=== PATIENT | male | born 1975 | race Caucasian/White ===

== ENCOUNTER 2017-05-24 10:49 | Inpatient (IN) | payer BC, OTHER ==
[~2017-05-24] VITALS: Ht 180.3 cm; Wt 65.0 kg
[~2017-05-24 10:49] MED LIST: CIPR-255 PO; CLOB-65 EXT; RANI150T3 PO
[2017-05-24 11:35] LABS: BASO % 0.8 %; BASO ABS # 0.06 K/uL (0-0.2); COMPLETE YES; EOS % 3.4 %; IG% 0.1 %; LYMPH % 32.2 %; LYMPH ABS # 2.36 K/uL (1.2-3.4); MEAN CELL VOLUME 91.3 fL (80-100); MEAN CORPUSCULAR HEMOGLOBIN 32.3 pg (25-34); MEAN CORPUSCULAR HGB CONC 35.4 g/dl (32-36); MEAN PLATELET VOLUME 9.3 fL (7.4-10.4); MONO % 6.4 %; NEUT % 57.1 %; PLATELET COUNT 206 K/uL (130-400); RED BLOOD COUNT 5.04 M/uL (4.7-6.1); WHITE BLOOD COUNT 7.33 K/uL (4.8-10.8)
[2017-05-24 11:53] LABS: ALT/SGPT 22 U/L (12-78); BLOOD UREA NITROGEN 10 mg/dl (7-18); BUN/CREATININE RATIO 9.1 (10-20); CARBON DIOXIDE 29 mmol/L (21-32); CHLORIDE 105 mmol/L (98-107); GLUCOSE 140 mg/dl (70-99); POTASSIUM 3.6 mmol/L (3.5-5.1); SODIUM 139 mmol/L (136-145)
--- NOTE | 2017-05-24 11:54 | DIAGNOSTIC IMAGING REPORT ---
THORACIC SPINE 3 VIEWS HISTORY: Pt c/o Rt sided back pain COMPARISON: None. FINDINGS: There is no fracture. No subluxation. Disc spaces are preserved. Paraspinal soft tissues are unremarkable. Right-sided pneumothorax with a maximal pleural gap of 3.2 cm. IMPRESSION: No fracture or subluxation within the thoracic spine. Right-sided pneumothorax. This is better appreciated on the same day chest/rib series. Electronically signed by: Pramod Holder M.D. 05/24/2017 11:53 AM Dictated Date/Time: 05/24/2017 11:51 AM
[2017-05-24 11:58] LABS: ALKALINE PHOSPHATASE 74 U/L (45-117); AST/SGOT 17 U/L (15-37)
--- NOTE | 2017-05-24 11:59 | DIAGNOSTIC IMAGING REPORT ---
R RIBS UNILATERAL WITH PA CHEST CLINICAL HISTORY: Pt c/o RT sided back pain COMPARISON STUDY: None. FINDINGS: There is a moderate to large right-sided pneumothorax with a maximal pleural gap of 5 cm. No midline shift. The heart is normal in size. The lungs are clear. No pleural effusions. No rib fractures. IMPRESSION: 1. Moderate to large right pneumothorax. 2. No rib fractures. 3. These findings were discussed with Dr. Bashir at 11:55 AM on 05/24/2017. Electronically signed by: Pramod Holder M.D. 05/24/2017 11:58 AM Dictated Date/Time: 05/24/2017 11:52 AM
[2017-05-24] MEDS ORDERED: SODIUM CHLORIDE 0.9% 1000ML 1,000 ML IV STA (12:03)
[2017-05-24] MEDS ORDERED: PROPOFOL IV EMULSION 10 MG/ML 20 ML VIAL IV STA (12:03)
[2017-05-24] MEDS ORDERED: KETAMINE HCL INJ 50 MG/ML 10 ML VIAL IV STA (12:03)
[2017-05-24] MEDS ORDERED: ONDANSETRON INJ 2 MG/ML 2 ML VIAL IV STA (12:03)
[2017-05-24] MEDS ORDERED: XYLOCAINE 1%/SOD BICARB 20 ML VIAL INFIL STA (12:11)
--- NOTE | 2017-05-24 12:18 | EMERGENCY ROOM VISIT NOTE ---
History Report prepared by Vee: Deb Chaves Under the Supervision of: Dr. Pantera Bashir M.D. 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 The patient had just finished brushing his teeth and stood up when his pain started. He had a sudden onset of severe right-sided back pain radiating down into his right ribs. Standing up straight and breathing exacerbate his pain. He rates his current pain as a 7/10 in severity. The patient denies chest pain and left- sided rib or back pain. He broke out into a cold sweat on his way to the ED. 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 A total of 10 systems reviewed and were otherwise negative. Past Medical & Surgical Medical Problems: (1) Gastritis Family History No pertinent history stated. Social History Smoking Status: Current Every Day Smoker Alcohol Use: none Drug Use: none Marital Status: single Occupation Status: employed Current/Historical Medications Scheduled PRN Ranitidine Hcl (Zantac), 150 MG PO DAILY PRN for GI Upset Allergies Coded Allergies: No Known Allergies (Unverified , 05/24/17) Physical Exam Vital Signs Date Time Temp Pulse Resp B/P (MAP) Pulse Ox O2 Delivery O2 Flow Rate FiO2 05/24/17 13:16 75 05/24/17 12:55 73 16 106/72 99 Nasal Cannula 2.0 05/24/17 12:35 36.7 72 18 124/73 99 Nasal Cannula 2.0 05/24/17 12:35 86 12 111/58 99 Nasal Cannula 2.0 05/24/17 12:34 73 16 103/68 100 Nasal Cannula 2.0 05/24/17 12:30 69 18 115/74 96 Room Air 05/24/17 12:26 36.7 16 103/68 99 Room Air 05/24/17 11:45 69 17 94/58 99 Room Air 05/24/17 11:23 Room Air 05/24/17 11:22 Room Air 05/24/17 11:17 Room Air 05/24/17 11:11 70 05/24/17 10:55 82 16 99/66 94 Physical Exam GENERAL: Patient is a healthy-appearing well-nourished 41 year old male. HEAD: Normocephalic atraumatic EYES: Ocular movements intact pupils equal and react to light OROPHARYNX mucous membranes are moist no exudates present no erythema or edema present NECK: Supple no nuchal rigidity CHEST: Good equal expansion LUNGS: Clear and equal to auscultation CARDIAC: Normal S1 and S2 ABDOMEN: Soft nontender no guarding BACK: No CVA tenderness EXTREMITIES: No pain upon palpation normal muscle strength in all groups no clubbing cyanosis or edema NEURO: Patient is following commands and answering questions appropriately. Alert and oriented x3 Cranial Nerves 2-12 grossly intact Medical Decision & Procedures ER Provider Diagnostic Interpretation: Radiology results as stated below per my review and radiologist interpretation: THORACIC SPINE 3 VIEWS HISTORY: Pt c/o Rt sided back pain COMPARISON: None. FINDINGS: There is no fracture. No subluxation. Disc spaces are preserved. Paraspinal soft tissues are unremarkable. Right-sided pneumothorax with a maximal pleural gap of 3.2 cm. IMPRESSION: No fracture or subluxation within the thoracic spine. Right-sided pneumothorax. This is better appreciated on the same day chest/rib series. Electronically signed by: Pramod Holder M.D. 05/24/2017 11:53 AM Dictated Date/Time: 05/24/2017 11:51 AM R RIBS UNILATERAL WITH PA CHEST CLINICAL HISTORY: Pt c/o RT sided back pain COMPARISON STUDY: None. FINDINGS: There is a moderate to large right-sided pneumothorax with a maximal pleural gap of 5 cm. No midline shift. The heart is normal in size. The lungs are clear. No pleural effusions. No rib fractures. IMPRESSION: 1. Moderate to large right pneumothorax. 2. No rib fractures. 3. These findings were discussed with Dr. Bashir at 11:55 AM on 05/24/2017. Electronically signed by: Pramod Holder M.D. 05/24/2017 11:58 AM Dictated Date/Time: 05/24/2017 11:52 AM CHEST ONE VIEW PORTABLE CLINICAL HISTORY: chest tube PNEUMOTHORAX COMPARISON STUDY: 05/24/2017 FINDINGS: There is an enlarging right-sided pneumothorax with a pleural separation of 67 mm. The left lung is clear. There are no pleural effusions. The reported right-sided chest tube appears extrathoracic.[ IMPRESSION: 1. The reported right-sided chest tube, appears extrathoracic 2. Enlarging large right-sided pneumothorax the pleural separation of 67 mm. Electronically signed by: Costa Krishnan M.D. 05/24/2017 1:09 PM Dictated Date/Time: 05/24/2017 1:07 PM Laboratory Results 05/24/17 11:20 Red Blood Count 5.04, Mean Corpuscular Volume 91.3, Mean Corpuscular Hemoglobin 32.3, Mean Corpuscular Hemoglobin Concent 35.4, Mean Platelet Volume 9.3, Neutrophils (%) (Auto) 57.1, Lymphocytes (%) (Auto) 32.2, Monocytes (%) (Auto) 6.4, Eosinophils (%) (Auto) 3.4, Basophils (%) (Auto) 0.8, Neutrophils # (Auto) 4.18, Lymphocytes # (Auto) 2.36, Monocytes # (Auto) 0.47, Eosinophils # (Auto) 0.25, Basophils # (Auto) 0.06 05/24/17 11:20 Test 05/24/17 11:20 White Blood Count 7.33 K/uL (4.8-10.8) Red Blood Count 5.04 M/uL (4.7-6.1) Hemoglobin 16.3 g/dL (14.0-18.0) Hematocrit 46.0 % (42-52) Mean Corpuscular Volume 91.3 fL (80-100) Mean Corpuscular Hemoglobin 32.3 pg (25-34) Mean Corpuscular Hemoglobin Concent 35.4 g/dl (32-36) Platelet Count 206 K/uL (130-400) Mean Platelet Volume 9.3 fL (7.4-10.4) Neutrophils (%) (Auto) 57.1 % Lymphocytes (%) (Auto) 32.2 % Monocytes (%) (Auto) 6.4 % Eosinophils (%) (Auto) 3.4 % Basophils (%) (Auto) 0.8 % Neutrophils # (Auto) 4.18 K/uL (1.4-6.5) Lymphocytes # (Auto) 2.36 K/uL (1.2-3.4) Monocytes # (Auto) 0.47 K/uL (0.11-0.59) Eosinophils # (Auto) 0.25 K/uL (0-0.5) Basophils # (Auto) 0.06 K/uL (0-0.2) RDW Standard Deviation 43.8 fL (36.4-46.3) RDW Coefficient of Variation 13.3 % (11.5-14.5) Immature Granulocyte % (Auto) 0.1 % Immature Granulocyte # (Auto) 0.01 K/uL (0.00-0.02) Anion Gap 5.0 mmol/L (3-11) Est Creatinine Clear Calc Drug Dose 78.4 ml/min Estimated GFR () 97.5 Estimated GFR (Non- 84.1 BUN/Creatinine Ratio 9.1 (10-20) Calcium Level 9.0 mg/dl (8.5-10.1) Total Bilirubin 0.6 mg/dl (0.2-1) Direct Bilirubin 0.2 mg/dl (0-0.2) Aspartate Amino Transf (AST/SGOT) 17 U/L (15-37) Alanine Aminotransferase (ALT/SGPT) 22 U/L (12-78) Alkaline Phosphatase 74 U/L (45-117) Total Creatine Kinase 68 U/L (39-308) Creatine Kinase MB < 0.5 ng/ml (0.5-3.6) Creatine Kinase MB Ratio (0-3.0) Troponin I < 0.015 ng/ml (0-0.045) Total Protein 8.0 gm/dl (6.4-8.2) Albumin 4.4 gm/dl (3.4-5.0) Lipase 121 U/L (73-393) Labs reviewed by ED physician. Medications Administered Medications (Trade) Dose Ordered Sig/Bert Route Start Time Stop Time Status Last Admin Dose Admin Sodium Chloride 1,000 ml @ 999 mls/hr Q1H1M STAT IV 05/24/17 12:03 05/24/17 13:03 DC 05/24/17 13:03 999 MLS/HR Ondansetron HCl (Zofran Inj) 4 mg NOW STAT IV 05/24/17 12:03 05/24/17 12:04 DC 05/24/17 13:03 4 MG Fentanyl Citrate (Fentanyl Inj) 100 mcg NOW STAT IV 05/24/17 12:24 05/24/17 12:25 DC 05/24/17 13:04 50 MCG Fentanyl Citrate (Fentanyl Inj) 100 mcg NOW ONCE IV 05/24/17 13:30 05/24/17 13:33 DC 05/24/17 13:41 100 MCG Procedure Tube Thoracostomy Indication: Pneumothorax Written consent was obtained after the risks and benefits were explained, including but not limited to cardiac/liver/lung injury, bleeding, scarring, infection, pain, and bone/joint/nerve damage. At this time, the risks of the procedure are less than the risks of NOT performing the procedure. A time out was taken and the correct patient and site identified. The patient was prepped and draped in the standard surgical fashion. 1% lidocaine without epinephrine was infused over the right fifth intercostal space into the subcutaneous tissue. A 3 cm incision was made transversely in the mid axillary line over the fifth intercostal rib. Blunt dissection was done with a Nora clamp to the area of the intercostal muscles; 1% lidocaine again was used for anesthesia in intercostal muscle and subpleural space. Blunt dissection was then done with the Nora clamps into the pleural cavity over the rib. Air was noted upon entering the pleural cavity. The pleural cavity was digitally inspected to confirm that the pleural cavity had been entered. A Cook catheter was inserted in the superior/posterior portion of the pleural space. Tape was used to secure the thoracostomy tube. An occlusive dressing was then placed and the thoracostomy tube was hooked to the Pleur-evac suction. The patient tolerated the procedure well without complications. A postoperative x-ray was then performed. ECG Indication: back/shoulder pain Rate (beats per minute): 78 Rhythm: normal sinus Findings: no acute ischemic change, no ectopy ED Course 1101: Past medical records reviewed. The patient was evaluated in room C10. A complete history and physical examination was performed. 1203: Zofran 4 mg IV, NSS 1000 ml @ 999 mls/hr IV, Propofol IV, Ketamine HCl 1211: Lidocaine HCl 1214: The patient was moved to room A1. I updated the patient on his results and obtained consent for the procedure. 1224: Fentanyl Citrate 100 mcg IV 1230: Sedation was started at this time. Please see Dr. Varun Valente's procedural sedation note for further details. 1236: I finished placing the chest tube at this time. X-ray was notified to come for a post-procedural x-ray. 1251: I discussed the patient's case with Dr. Torre of general surgery. He wants the patient to be transferred to a trauma center. 1256: I spoke with Smooth Woodard PA-C with thoracic surgery. We discussed the patient's results and treatment plan. Smooth Woodard and Dr. Keenan of thoracic surgery will come to the ED to evaluate the patient for further management. 1259: I reassessed the patient at this time. He is resting comfortably. I discussed the results and treatment plan with the patient. I answered all pertaining questions that he had. He expressed understanding and verbalized agreement. Medical Decision Differential diagnosis: Etiologies such as musculoskeletal, disc herniation, fracture, aortic disease, metastatic disease, cord compression, discitis, infection, renal colic, gastrointestinal, acute exacerbation of chronic back pain, sciatica, cauda equina, as well as others were entertained. This is a 41-year-old male who presents emergency department complaining of right-sided chest pain. The patient's x-rays are concerning for pneumothorax. I discussed placing a chest tube with the patient who signed the consent. Sedation was performed by Dr. Valente. Chest tube was placed however there was no reinflation of the lung on x-ray. At this point I did discuss the case with the thoracic surgeon on-call who agreed to admit the patient. Medication Reconcilliation Current Medication List: was personally reviewed by me Blood Pressure Screening Patient's blood pressure: Normal blood pressure Consults Time Called: 1249 Consulting Physician: Dr. Torre Returned Call: 1251 I discussed the patient's case with Dr. Torre of general surgery. He wants the patient to be transferred to a trauma center. Additional Consults: Time Called: 1254 Consulted Physician: Smooth Woodard PA-C Returned Call: [phone] Additional Comments: I spoke with Smooth Woodard PA-C with thoracic surgery. We discussed the patient' s results and treatment plan. Smooth Woodard and Dr. Keenan of thoracic surgery will come to the ED to evaluate the patient for further management. Impression Primary Impression: Spontaneous pneumothorax Scribe Attestation The scribe's documentation has been prepared under my direction and personally reviewed by me in its entirety. I confirm that the note above accurately reflects all work, treatment, procedures, and medical decision making performed by me. Departure Information Dispostion Being Evaluated By Surgeon Referrals No Doctor, Assigned (PCP) Patient Instructions My [facility]
[2017-05-24] MEDS ORDERED: FENTANYL CITRATE INJ 50 MCG/1 ML 2 ML VIAL IV STA (12:24)
[2017-05-24 12:26] VITALS: BP 103/68; TEMP 36.7; O2SAT 99
[2017-05-24] MEDS ORDERED: FENTANYL CITRATE INJ 50 MCG/1 ML 2 ML VIAL ONE (12:26)
[2017-05-24 12:35] VITALS: BP 124/73; PULSE 72; TEMP 36.7; O2SAT 99
--- NOTE | 2017-05-24 13:10 | DIAGNOSTIC IMAGING REPORT ---
CHEST ONE VIEW PORTABLE CLINICAL HISTORY: chest tube PNEUMOTHORAX COMPARISON STUDY: 05/24/2017 FINDINGS: There is an enlarging right-sided pneumothorax with a pleural separation of 67 mm. The left lung is clear. There are no pleural effusions. The reported right-sided chest tube appears extrathoracic.[ IMPRESSION: 1. The reported right-sided chest tube, appears extrathoracic 2. Enlarging large right-sided pneumothorax the pleural separation of 67 mm. Electronically signed by: Costa Krishnan M.D. 05/24/2017 1:09 PM Dictated Date/Time: 05/24/2017 1:07 PM
[2017-05-24] MEDS ORDERED: FENTANYL CITRATE INJ 50 MCG/1 ML 2 ML VIAL IV ONE (13:30)
[2017-05-24] MEDS ORDERED: ONDANSETRON INJ 2 MG/ML 2 ML VIAL IV PRN (13:45)
[2017-05-24] MEDS ORDERED: RANITIDINE HCL 150 MG TAB PO PRN (13:45)
--- NOTE | 2017-05-24 13:49 | DIAGNOSTIC IMAGING REPORT ---
SINGLE VIEW CHEST CLINICAL HISTORY: Chest tube placement. FINDINGS: An AP, portable, upright chest radiograph is compared to study performed earlier the same day 05/24/2017. The examination is degraded by portable technique and patient rotation. A right apical chest tube has been placed. There is a trace residual right apical pneumothorax with less than 1 cm of apical pleural separation The cardiomediastinal silhouette is unremarkable. No airspace consolidation or large pleural effusion is seen. No left-sided pneumothorax is identified. The bony thorax is grossly intact. IMPRESSION: 1. A right-sided chest tube has been placed. There is only trace residual right apical pneumothorax. 2. The lungs are otherwise clear. Electronically signed by: Speedy Oliveros M.D. 05/24/2017 1:48 PM Dictated Date/Time: 05/24/2017 1:46 PM
[2017-05-24] MEDS ORDERED: KETOROLAC TROMETHAMINE 15 MG/ML VIAL IV ONE (14:00)
[2017-05-24] MEDS: MoRPHine SULFATE 4 MG/ML 1 ML CARP\\VIAL IV PRN (14:03)
[2017-05-24] MEDS: OXYCODONE HCL IR 5 MG TAB (IMMEDIATE RELEASE) PO PRN ×2 (14:04→19:54)
--- NOTE | 2017-05-24 14:29 | DIAGNOSTIC IMAGING REPORT ---
CT SCAN OF THE CHEST WITHOUT IV CONTRAST CLINICAL HISTORY: Pneumothorax. COMPARISON STUDY: Chest radiograph dated 05/24/2017. TECHNIQUE: CT scan of the thorax was performed from the thoracic inlet to the upper abdomen. Images are reviewed in the axial, sagittal, and coronal planes. IV contrast was not administered for this examination as per the referring clinician. A dose lowering technique was utilized adhering to the principles of ALARA. CT DOSE: 232.64 mGy.cm FINDINGS: Thyroid: Imaged portions of the thyroid gland are normal in size and attenuation. Thoracic aorta: The thoracic aorta is normal in caliber and demonstrates standard 3-vessel arch anatomy. Heart: The heart is normal in size and without pericardial effusion. The pulmonary trunk is normal in caliber. Lungs and pleural spaces: A right-sided chest tube is in place. This enters between the right anterolateral fourth and fifth ribs and terminates at the right apex. There is trace residual right pneumothorax. The trachea and central airways are clear. There is biapical scarring. Mild emphysematous change is noted. Atelectasis is seen at the right lung base. No airspace consolidation is seen typical for pneumonia. Trace right pleural effusion is noted. A 4 mm left lower lobe pulmonary nodule is seen on image #[id number]. Mediastinum: There is no mediastinal lymphadenopathy. Gin: Not well assessed without IV contrast. Axillae: There is no axillary lymphadenopathy. Upper abdomen: Partially visualized upper abdominal viscera is within normal limits. Skeletal structures: No lytic or blastic bony lesions are seen. IMPRESSION: 1. A right apical chest tube has been placed. There is a trace residual right-sided pneumothorax. 2. Atelectasis and trace pleural effusion is seen at the right lung base. 3. Minimal emphysematous change is observed. 4. There is an indeterminant 4 mm pulmonary nodule the left lung base. This can be followed if clinically warranted. See below. Please refer to below summary of Fleischner criteria recommendations for follow-up of incidental CT nodules (Leslie Montalvo, Guidelines for management of small pulmonary nodules detected on CT scans: A statement from the Fleischner Society, Radiology 237: [phone].) SOLID NODULES Solitary nodule size: <6 mm * low risk patients: no follow-up needed * high risk patients: optional CT at 12 months Solitary nodule size: 6-8 mm * low risk patients: follow-up at 6-12 months, then consider further follow-up at 18-24 months * high risk patients: initial follow-up CT at 6-12 months and then at 18-24 months if no change Solitary nodule size: >8 mm * either low or high risk patients - consider follow-up CT at 3 months, and/or CT-PET, and/or biopsy Multiple nodules size: <6 mm * low risk patients: no routine follow-up * high risk patients: optional CT at 12 months Multiple nodules size: 6-8 mm * low risk patients: follow-up at 3-6 months, then consider further follow-up at 18-24 months * high risk patients: follow-up at 3-6 months, then at 18-24 months if no change Multiple nodules size: >8 mm * low risk patients: follow-up at 3-6 months, then consider further follow-up at 18-24 months * high risk patients: follow-up at 3-6 months, then at 18-24 months if no change Note: newly detected indeterminate nodule in persons 35 years of age or older. * low risk patients: minimal or absent history of smoking and/or other known risk factors * high risk patients: history of smoking or of other known risk factors (e.g. first degree relative with lung cancer, or exposure to asbestos, radon, uranium) * if a nodule up to 8 mm is partly solid or is ground glass further follow-up is required after 24 months to exclude possible slow growing adenocarcinoma (DEISY) SUBSOLID NODULES Solitary pure ground-glass nodule * nodule size <6 mm - no CT follow-up required * nodule size >=6 mm - follow-up CT at 6-12 months, then every 2 years until 5 years Solitary part-solid nodule * nodule size <6 mm - no CT follow-up required * nodule size >=6 mm - follow-up CT at 3-6 months. If unchanged, and solid component remains <6 mm, then annual follow-up for 5 years Multiple subsolid nodules * nodule size <6 mm - follow-up CT at 3-6 months, consider further follow-up at 2 and 4 years if stable * nodule size >=6 mm - follow-up CT at 3-6 months, subsequent management based on the most suspicious nodule(s) Electronically signed by: Speedy Oliveros M.D. 05/24/2017 2:28 PM Dictated Date/Time: 05/24/2017 2:21 PM
[2017-05-24] MEDS ORDERED: KETOROLAC TROMETHAMINE 30 MG/ML VIAL ONE (14:37)
[2017-05-24 15:52] VITALS: BP 118/76; PULSE 89; TEMP 36.8; O2SAT 96; Ht 180.3 cm; Wt 65.0 kg
[2017-05-24] MEDS: ACETAMINOPHEN 325 MG TAB PO SCH ×2 (16:23→19:47)
[2017-05-24] MEDS: KETOROLAC TROMETHAMINE 15 MG/ML VIAL IV PRN ×2 (17:24→23:29)
--- NOTE | 2017-05-24 17:31 | SURGERY PROGRESS NOTE ---
DATE: 05/24/2017 SUBJECTIVE: Mr. Jarvis and I had a long discussion. He does have some apical blebs. More importantly to me as I think this has happened to Mr. Jarvis, at least on 2 different occasions. In addition, he is planning a trip to [facility] in several months. I had a long discussion and explained to him that operating on him is a judgment call, but I think if he plans on a trans oceanic flight that addressing this pneumothorax would be in his best interest. I also lectured him on the importance of smoking cessation. We are going to proceed with a right thoracoscopy with apical bleb resection tomorrow morning. We talked about risks and benefits and expected postoperative course. He understands. We will set this up for tomorrow morning. MICHELE
--- NOTE | 2017-05-24 17:43 | HISTORY & PHYSICAL EXAMINATION ---
DATE OF ADMISSION: 05/24/2017 REASON FOR ADMISSION: Recurrent right spontaneous pneumothorax. HISTORY OF PRESENT ILLNESS: This is a very nice 41-year-old male who does have a history of cigarette smoking for the last 20 years, but has never been a heavy smoker. He states that he smoked about half pack per day. He was admitted when he developed acute right back and chest pain after breakfast he ate this morning. In few minutes, he was found to have a fairly large pneumothorax. An attempt was made to place a catheter, but he did not have reexpansion and we were asked to see him. We evaluated him and he did indeed have a persistent pneumothorax on the right. He did not appear to have any adhesions. PAST MEDICAL HISTORY: The patient's history is interesting. He states that he had the exact same symptoms, although not quite as severe 2-3 times in the past 2-3 years. He states he usually would improve in the subsequent days; however, he states he did become short of breath and had pleuritic type pain. Otherwise, the patient is fairly healthy. He has a history of "gastritis" and occasion, will take a Zantac. Otherwise, he has never had surgery. He does smoke half pack of cigarettes a day. PAST SURGICAL HISTORY: Extraction of wisdom teeth. MEDICATION: Zantac p.r.n. ALLERGIES: No known drug allergies. 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 He does smoke about half pack of cigarettes a day. He is single. He does not use drugs. On occasion, he does have some alcoholic beverage. FAMILY MEDICAL HISTORY: There is a history of diabetes in his family. His parents are still living. REVIEW OF SYSTEMS: The patient has been in his usual state of health prior to this admission. He stated that he did develop sudden acute back pain on his right side, on his right chest and broke out in a sweat. It was pleuritic in nature. He has had no neurologic events such as focal weakness or seizures. He has had no visual or auditory symptoms. He denies skin breakdown or palpitations. All in all, he has had no GI or complaints. PHYSICAL EXAMINATION: GENERAL: He is a 5 feet 11 inch, 143 pound male with a BMI of about 20. HEENT: His head is shaved. His extraocular movements are intact. Pupils are equal, round and reactive. Sclerae are anicteric. He has no oral mucosal lesions. Teeth are in fairly good repair. NECK: Supple. He has no tracheal deviation or neck vein distention. He has no carotid bruits or lymphadenopathy. I detect no thyromegaly. LUNGS: He has obviously decreased breath sounds on the right compared to the left. HEART: He has a regular rate and rhythm of his heart at about 80 beats per minute. Pulse oximetry is 100%, but he is wearing supplemental oxygen. ABDOMEN: Soft, nontender and flat. He has no surgical incisions. EXTREMITIES: He has no peripheral edema. He has no joint effusions. He has excellent peripheral pulses. NEUROLOGIC: He is completely awake, alert and intact. DATA: I reviewed chest x-ray and indeed the patient does have a right pneumothorax with a small pigtail catheter. ASSESSMENT AND PLAN: Probable recurrent right spontaneous pneumothorax. I would assume that this patient has apical blebs. I am going to remove this pigtail and insert a small bore thoracostomy tube and admit the patient to my service. We are also going to do a CT scan as I may offer him a bleb resection depending on what we find.
--- NOTE | 2017-05-24 18:41 | Anesthesiology Progress Note ---
Anesthesia Progress Note Date of Service May 24, 2017. Progress Notes Mr. Jarvis is a healthy 41 year old male scheduled for right VATS tomorrow for bleb removal with Dr. Keenan. PMH significant for mild GERD and smoking. Only surgery was WTE and denied anesthetic problems. Plan tomorrow for GETA with double lumen tube. Consent obtained. All questions answered.
--- NOTE | 2017-05-24 19:16 | OPERATIVE REPORT ---
DATE OF OPERATION: 05/24/2017 PROCEDURE: Insertion of a right 16 Lebanese thoracostomy tube. SURGEON: Massimo Keenan MD BRAND MANAGER: PAM Frias DESCRIPTION OF PROCEDURE: The patient was in supine position with the head of bed elevated to 30 degrees. His right arm was raised and extended so his hand was behind his head. We had removed his pigtail catheter. He was prepped and draped in the usual sterile fashion. After appropriate timeout had been called, I used a 25 gauge needle to anesthetize the initial insertion site of the pigtail catheter. We then enlarged this insertion tract to about 4 mm. Then using a large bore needle anesthetized the skin and subcutaneous tissues, the rib above the incision and went into the pleura and got free flowing air. We anesthetized the pleura quite nicely. A guidewire was inserted through the needle and needle was removed. A dilator was slid over the guidewire and then removed. Then the 16 Lebanese chest tube with an inner trocar was inserted over the guidewire and the inner trocar and guidewire were removed. This was sutured in place with 2-0 silk suture. We had a very small air leak. Chest x-ray showed complete expansion of his lung. Antimicrobial dressings were placed. I had a long discussion with the patient felt, he much better and we were able to get his oxygen off. He will be ____ to my service. We are going to check a CT scan and I may operate on him tomorrow. I attest to the content of the Intraoperative Record and any orders documented therein. Any exception s are noted below.
--- NOTE | 2017-05-24 19:36 | EMERGENCY ROOM VISIT NOTE ---
Pre-Mod Sedation Assessment General Date of Moderate Sedation: May 24, 2017. Vital Signs: Vital Signs Past 12 Hours Date Time Temp Pulse Resp B/P (MAP) Pulse Ox O2 Delivery O2 Flow Rate FiO2 05/24/17 16:50 Room Air 05/24/17 15:52 36.8 89 16 118/76 96 Room Air 05/24/17 15:12 84 20 118/70 98 Room Air 05/24/17 14:21 81 20 113/74 98 Room Air 05/24/17 13:40 72 20 115/74 98 Room Air 05/24/17 13:30 83 112/69 98 Room Air 05/24/17 13:16 75 05/24/17 13:15 77 27 119/75 99 Room Air 05/24/17 13:10 80 16 116/78 100 Room Air 05/24/17 13:05 73 16 99/84 98 Room Air 05/24/17 13:00 79 16 115/70 05/24/17 12:55 73 16 106/72 99 Nasal Cannula 2.0 05/24/17 12:35 36.7 72 18 124/73 99 Nasal Cannula 2.0 05/24/17 12:35 86 12 111/58 99 Nasal Cannula 2.0 05/24/17 12:34 73 16 103/68 100 Nasal Cannula 2.0 05/24/17 12:30 69 18 115/74 96 Room Air 05/24/17 12:26 36.7 16 103/68 99 Room Air 05/24/17 11:45 69 17 94/58 99 Room Air 05/24/17 11:23 Room Air 05/24/17 11:22 Room Air 05/24/17 11:17 Room Air 05/24/17 11:11 70 05/24/17 10:55 82 16 99/66 94 Review Cardiovascular: regular rate, rhythm, no edema, no gallop, no JVD, no murmur, normal peripheral pulses Abdomen: normal bowel sounds, non tender, soft Lungs: chest non-tender, lungs clear, no respiratory distress, no accessory muscle use, + decreased breath sounds (Right apex minimal breath sounds) Airway Class: I Pre-Sedation Airway Assessment Oral Cavity: Chipped Teeth Short Thick Neck: No Hx of Sleep Apnea: No Smoking Status: Current Every Day Smoker Mallampati Classification: Class I ASA Classification: Class I Procedure Planning Contraindications-for Mod Sed: None Yes Notes The planned sedation has been discussed with the patient and consent obtained. I have identified the patient, determined the appropriateness of sedation and have assessed the patient immediately prior to the procedure. All medicine(s) and interventions are by my order.
--- NOTE | 2017-05-24 19:38 | EMERGENCY ROOM VISIT NOTE ---
Post-Moderate Sedation Plan General Date of Moderate Sedation May 24, 2017. Vital Signs: Vital Signs Past 12 Hours Date Time Temp Pulse Resp B/P (MAP) Pulse Ox O2 Delivery O2 Flow Rate FiO2 05/24/17 16:50 Room Air 05/24/17 15:52 36.8 89 16 118/76 96 Room Air 05/24/17 15:12 84 20 118/70 98 Room Air 05/24/17 14:21 81 20 113/74 98 Room Air 05/24/17 13:40 72 20 115/74 98 Room Air 05/24/17 13:30 83 112/69 98 Room Air 05/24/17 13:16 75 05/24/17 13:15 77 27 119/75 99 Room Air 05/24/17 13:10 80 16 116/78 100 Room Air 05/24/17 13:05 73 16 99/84 98 Room Air 05/24/17 13:00 79 16 115/70 05/24/17 12:55 73 16 106/72 99 Nasal Cannula 2.0 05/24/17 12:35 36.7 72 18 124/73 99 Nasal Cannula 2.0 05/24/17 12:35 86 12 111/58 99 Nasal Cannula 2.0 05/24/17 12:34 73 16 103/68 100 Nasal Cannula 2.0 05/24/17 12:30 69 18 115/74 96 Room Air 05/24/17 12:26 36.7 16 103/68 99 Room Air 05/24/17 11:45 69 17 94/58 99 Room Air 05/24/17 11:23 Room Air 05/24/17 11:22 Room Air 05/24/17 11:17 Room Air 05/24/17 11:11 70 05/24/17 10:55 82 16 99/66 94 Review - Discharge Plan Post Moderate Sedation Plan: Post Sedation Note: On clinical assessment, the patient appears to have tolerated the conscious sedation without complications. Patient is recovering as anticipated. Patient will continue to be monitored by nursing and may be discharged when conscious sedation discharge criteria are met.
--- NOTE | 2017-05-24 19:42 | EMERGENCY ROOM VISIT NOTE ---
ED Visit Note First contact with patient: 12:15 Procedural Sedation Indication: Right thoracostomy placement being done by Dr Bashir for spontaneous pneumothorax Last Ate: >12 hours (ate last night) Previous issues with sedation: none Snore: no Emergent: Yes ASA: 1 Dentures: none, no loose teeth Time Out: 12:25p Time Recovered: 12:41p Total time: 20 min. I was requested by Dr Bashir to preform procedural sedation on Mr Jarvis while he placed right chest tube. Written consent was obtained after the risks and benefits were explained to the patient, including, but not limited to aspiration, allergic reaction, breathing difficulties, cardiac complications, vomiting, pain, event recall, bleeding, and /or infection. Pre-sedation examination and paperwork completed. The patient was on 100% oxygen via NRB prior to the procedure. Continuos end tidal CO2 monitoring, pulse oximetry, and cardiac monitoring were utilized. Suction, airway equipment, medications, respiratory equipment, and appropriate personnel were prepared prior to the initiation of the procedure. A time out was taken. Sedation was achieved utilizing 50 mcg Fentanyl IV followed by 50mg x 2 of propofol IV. After I observed the patient had reached the appropriate level of sedation the main procedure was performed without complication. Sedation was discontinued and the monitoring continued. The patient recovered quickly from the effects of the medication without complication or adverse event.
[2017-05-24 23:03] VITALS: BP 107/67; PULSE 67; TEMP 36.8; O2SAT 97
[2017-05-25] VITALS (13 sets, daily range): BP systolic 96–116; BP diastolic 59–69; PULSE 56–90; TEMP 36.7–37.1; O2SAT 96–99
[2017-05-25] MEDS: ACETAMINOPHEN 325 MG TAB PO SCH ×2 (02:20→07:59)
--- NOTE | 2017-05-25 07:07 | DIAGNOSTIC IMAGING REPORT ---
CHEST ONE VIEW PORTABLE CLINICAL HISTORY: pneumothorax COMPARISON STUDY: 05/24/2017 FINDINGS: The cardiac images so contours remain stable. There is no failure. There is no focal pulmonary consolidation. There is a right-sided chest tube with its tip projected over the apex. There is slight interval enlargement of the right apical pneumothorax which currently has a pleural separation of 14 mm.[ IMPRESSION: Slight interval increase in the size the right apical pneumothorax which has a pleural separation of 14 mm. Electronically signed by: Costa Krishnan M.D. 05/25/2017 7:06 AM Dictated Date/Time: 05/25/2017 7:05 AM
--- NOTE | 2017-05-25 07:25 | History & Physical Bridge Note ---
H&P Re-Evaluation Bridge Note: I have examined the patient, reviewed the History & Physical and in the interval since the performance of the History & Physical I have noted the following changes of clinical significance: No changes noted
[2017-05-25] MEDS ORDERED: ATROPINE SULFATE 0.1 MG/ML 5ML SYR IV PRN (07:30)
[2017-05-25] MEDS ORDERED: HYDROmorphone INJ 1 MG/ML SYR IV PRN (07:30)
[2017-05-25] MEDS ORDERED: ONDANSETRON INJ 2 MG/ML 2 ML VIAL IV PRN ×2 (07:30→11:30)
[2017-05-25] MEDS ORDERED: EpHEDrine SULFATE INJ 50 MG/ML AMP IV PRN (07:30)
[2017-05-25] MEDS ORDERED: FENTANYL CITRATE INJ 50 MCG/1 ML 2 ML VIAL IV PRN (07:30)
[2017-05-25] MEDS ORDERED: BUPIVACAINE LIPOSOME 1/3% 266 MG/20 ML VIAL INFIL ONE (09:53)
[2017-05-25] MEDS ORDERED: SODIUM CHLORIDE 0.9% PF 50 ML VIAL ONE (09:53)
[2017-05-25] MEDS ORDERED: MIDAZOLAM HCL 1 MG/ML 2ML VIAL ONE (09:53)
[2017-05-25] MEDS ORDERED: FENTANYL CITRATE INJ 50 MCG/1 ML 2 ML VIAL ONE ×2 (09:53→11:55)
[2017-05-25] MEDS ORDERED: CEFAZOLIN SOD 1 GM VIAL ONE ×3 (10:20→11:18)
[2017-05-25] MEDS ORDERED: ROCURONIUM BROMIDE 10 MG/ML 5 ML VIAL IV ONE (11:01)
[2017-05-25] MEDS ORDERED: PROPOFOL IV EMULSION 10 MG/ML 20 ML VIAL IV ONE (11:01)
[2017-05-25] MEDS ORDERED: PHENYLEPHRINE HCL INJ 10 MG/ML VIAL ONE (11:02)
[2017-05-25] MEDS ORDERED: DEXAMETHASONE SOD INJ 4 MG/ML VIAL ONE (11:02)
[2017-05-25] MEDS ORDERED: ONDANSETRON INJ 2 MG/ML 2 ML VIAL ONE (11:02)
[2017-05-25] MEDS ORDERED: NEOSTIGMINE METHYLSULFATE 5 MG/5 ML SYR ONE (11:18)
--- NOTE | 2017-05-25 12:07 | DIAGNOSTIC IMAGING REPORT ---
CHEST ONE VIEW PORTABLE CLINICAL HISTORY: pneumothorax COMPARISON STUDY: 05/25/2017 FINDINGS: The cardiac and mediastinal contours remain stable. A right-sided chest tube is again visualized. A definite pneumothorax is no longer visualized. There are no pleural effusions. There is no focal pulmonary consolidation. There is right upper lobe volume loss with elevation of the minor fissure.[ IMPRESSION: Right-sided chest tube. No pneumothorax is visualized. Electronically signed by: Costa Krishnan M.D. 05/25/2017 12:05 PM Dictated Date/Time: 05/25/2017 12:04 PM
--- NOTE | 2017-05-25 12:29 | OPERATIVE REPORT ---
DATE OF OPERATION: 05/25/2017 PREOPERATIVE DIAGNOSIS: Recurrent right spontaneous pneumothorax. POSTOPERATIVE DIAGNOSIS: Same. PROCEDURES: 1. Thoracoscopic apical bleb resection. 2. Limited atypical pleurectomy. SURGEON: Dr. Keenan. MEMS DEVICE SCIENTIST: PAM Frias. ANESTHESIA: General anesthesia with endotracheal intubation using a single lumen tube and carbon dioxide insufflation. SPECIFICS OF PROCEDURE: This is a 41-year-old who is a smoker but really is not a heavy smoker, about a half a pack a day for 20 years. He noted acute onset of pain yesterday and came in and was found to have significant pneumothorax. I inserted a small bore chest tube in the Emergency Room and this resolved. By patient history, he has had this happened at least 2-3 times in the past with identical symptoms, but the pain was a bit worse in his back with this. By this history over the last 2 years, I feel that he has probably had recurrent pneumothoraces. He states that he would have these symptoms with shortness of breath and pleuritic chest pain for several days and then it would slowly resolve. We did a CT scan and he did have some apical changes; however, I do not see any masses. He had a small air leak in his chest tube. We discussed conservative management with chest tube versus thoracoscopy. The patient then told me he was going to [facility] in a few months. I think that dressing the apical changes we see would be prudent prior to a [place]. On 05/25/2017, the patient was brought to the operating room and underwent an uncomplicated right thoracoscopy. I take closely inspected his entire lung. He had very complete fissures. I saw no abnormalities. He had no fluid. He did have changes in his apex and I wedged out a generous portion. I also did a limited pleurectomy apically. We did an Exparel block. He tolerated it well with no air leak at the conclusion of the case. PROCEDURE: The patient was brought to the operating room and placed in supine position. General anesthesia induced and endotracheal intubation was performed with a single lumen tube. The patient was placed in left lateral decubitus position. After appropriate timeout has been called and antibiotics given, he was prepped and draped in usual sterile fashion. A 5 mm port was placed at the tip of the scapula after we had removed a small chest tube. Upon placing the 5 mm scope, we could see that there were no adhesions we had. We had very good collapse of the lung with low volumes by anesthesia and the insufflation of CO2. There were changes at the apex. For this reason, I made a 12 mm port at about the sixth interspace anteriorly and then another 5 mm port about the fourth interspace. With this, I was able to use a 5 mm camera posteriorly and then grasped the apex and then using the Endo-ALETHEA stapler to the 12 mm port, I was able to fire across the apex. I fired it about 3 times. I removed this through an Endobag through the 12 mm incision. I closely inspected this and placed the patient in Trendelenburg position and used instilled warm saline. Upon inflating the lung, we did not see any leaks. I closely inspected the superior segment of lower lobe and even the basilar segments, I simply did not see any blebs or any air bubbling. I then performed a very limited pleurectomy just at the apex, in the upper 2-3 ribs. This went very well and we did not find any bleeding. I then used 266 mg of Exparel and 60 mL total of normal saline and injected from the 2nd to 11th rib for block. We then placed a 24-[place] Timorese chest tube through a 12 mm port directed towards the apex and sutured in place with a heavy silk suture. A 4-0 Monocryl was used to close the incisions of the two 8 mm ports. He tolerated it well. I attest to the content of the Intraoperative Record and any orders documented therein. Any exception s are noted below.
--- NOTE | 2017-05-25 12:42 | Anesthesiology Progress Note ---
Anesthesia Post Op Note Date & Time May 25, 2017 at 12:42 Vital Signs Pain Intensity: 4 Vital Signs Past 12 Hours Date Time Temp Pulse Resp B/P (MAP) Pulse Ox O2 Delivery O2 Flow Rate FiO2 05/25/17 12:20 36.7 59 14 119/71 99 Nasal Cannula 2 05/25/17 12:10 72 13 116/73 99 Oxymask 8 05/25/17 12:00 75 14 128/79 100 Oxymask 8 05/25/17 11:50 87 14 128/81 100 Oxymask 8 05/25/17 11:43 36.3 85 16 122/80 100 Oxymask 8 05/25/17 07:31 36.8 63 16 116/64 (81) 97 Room Air 05/25/17 07:15 Room Air Notes Mental Status: alert / awake / arousable, participated in evaluation Pt Amnestic to Procedure: Yes Nausea / Vomiting: adequately controlled Pain: adequately controlled Airway Patency, RR, SpO2: stable & adequate BP & HR: stable & adequate Hydration State: stable & adequate Anesthetic Complications: no major complications apparent
[2017-05-25] MEDS: MoRPHine SULFATE 4 MG/ML 1 ML CARP\\VIAL IV PRN (13:17)
[2017-05-25] MEDS: D5W AND 1/2NSS 1,000 ML IV SCH ×2 (13:18→20:34)
[2017-05-25 14:01] LABS: PARTIAL THROMBOPLASTIN RATIO 1.1; PROTHROMBIN TIME (PATIENT) 10.8 SECONDS (9.0-12.0)
[2017-05-25] MEDS: METOCLOPRAMIDE HCL INJ 5 MG/ML 2 ML VIAL IV. SCH ×2 (14:12→21:25)
[2017-05-25] MEDS: ACETAMINOPHEN IV 1,000 MG in EMPTY BAG 0 ML IV SCH ×2 (15:42→23:51)
[2017-05-25] MEDS: OXYCODONE HCL IR 5 MG TAB (IMMEDIATE RELEASE) PO PRN (15:46)
[2017-05-25] MEDS: CEFAZOLIN IV 2,000 MG in DEXTROSE 5% 50ML 50 ML IV SCH (17:58)
[2017-05-25] MEDS ORDERED: CEFAZOLIN IV 2,000 MG in DEXTROSE 5% 50ML 100 ML IV SCH (18:00)
[2017-05-25] MEDS: DOCUSATE SODIUM 100 MG CAP PO SCH (20:34)
[2017-05-26] MEDS: CEFAZOLIN IV 2,000 MG in DEXTROSE 5% 50ML 50 ML IV SCH (02:34)
[2017-05-26] MEDS: OXYCODONE HCL IR 5 MG TAB (IMMEDIATE RELEASE) PO PRN (02:38)
[2017-05-26 02:59] VITALS: BP 110/66; PULSE 66; TEMP 37.1; O2SAT 98
[2017-05-26] MEDS: KETOROLAC TROMETHAMINE 15 MG/ML VIAL IV PRN (05:07)
[2017-05-26] MEDS: D5W AND 1/2NSS 1,000 ML IV SCH (05:07)
[2017-05-26] MEDS: METOCLOPRAMIDE HCL INJ 5 MG/ML 2 ML VIAL IV. SCH (05:57)
--- NOTE | 2017-05-26 07:16 | DIAGNOSTIC IMAGING REPORT ---
SINGLE VIEW CHEST CLINICAL HISTORY: Chest tube and pneumothorax. FINDINGS: 2 AP, portable, upright chest radiographs are compared to study dated 05/25/2017. Correlation is made with chest CT dated 05/24/2017. The examination is degraded by portable technique and patient rotation. A right apical chest tube is unchanged in position. No residual pneumothorax is visualized. The cardiomediastinal silhouette is unremarkable. Suture material is suggested at the right apex. No airspace consolidation or large pleural effusion is seen. No left-sided pneumothorax is identified. The bony thorax is grossly intact. IMPRESSION: 1. A right apical chest tube is unchanged in position. No residual pneumothorax is identified. 2. The lungs are otherwise clear. Electronically signed by: Speedy Oliveros M.D. 05/26/2017 7:14 AM Dictated Date/Time: 05/26/2017 7:11 AM
--- NOTE | 2017-05-26 07:20 | DIAGNOSTIC IMAGING REPORT ---
SINGLE VIEW CHEST CLINICAL HISTORY: Chest tube removal. FINDINGS: An AP, portable, upright chest radiograph is are compared to study dated earlier the same day 05/26/2017. Correlation is made with chest CT dated 05/24/2017. The examination is degraded by portable technique and patient rotation. A right apical chest tube has been removed. There is a moderate recurrent right apical pneumothorax. The cardiomediastinal silhouette is unremarkable. Suture material is identified at the right apex. No airspace consolidation or large pleural effusion is seen. No left-sided pneumothorax is identified. The bony thorax is grossly intact. IMPRESSION: 1. The right apical chest tube has been removed. There is a moderate recurrent right apical pneumothorax. 2. The lungs are otherwise clear. Electronically signed by: Speedy Oliveros M.D. 05/26/2017 7:19 AM Dictated Date/Time: 05/26/2017 7:17 AM
[2017-05-26] MEDS: MoRPHine SULFATE 4 MG/ML 1 ML CARP\\VIAL IV PRN (07:24)
[2017-05-26 07:44] VITALS: BP 116/67; PULSE 64; TEMP 36.9; O2SAT 98
[2017-05-26] MEDS: DOCUSATE SODIUM 100 MG CAP PO SCH ×2 (08:01→20:30)
[2017-05-26] MEDS: ACETAMINOPHEN IV 1,000 MG in EMPTY BAG 0 ML IV SCH (08:01)
[2017-05-26] MEDS: ENOXAPARIN 40 MG/0.4 ML SYR SQ SCH (08:02)
--- NOTE | 2017-05-26 08:08 | Surgery Progress Note ---
Subjective Date of Service: May 26, 2017. Pt. notes pain from chest tube. No SOB. Objective Vitals Date Time Temp Pulse Resp B/P (MAP) Pulse Ox O2 Delivery O2 Flow Rate FiO2 05/26/17 07:44 36.9 64 16 116/67 (83) 98 Nasal Cannula 2.0 05/26/17 02:59 37.1 66 16 110/66 (81) 98 Room Air 05/25/17 23:50 Room Air 05/25/17 23:29 37.1 62 16 105/65 (78) 97 Room Air 05/25/17 23:12 61 96 05/25/17 23:02 37.0 61 18 96/59 (71) 96 Room Air 05/25/17 21:28 36.9 61 16 108/68 (81) 99 05/25/17 21:00 Room Air 05/25/17 19:10 36.8 56 18 96/59 (71) 96 Room Air 05/25/17 19:00 36.8 68 16 100/64 (76) 96 Room Air 05/25/17 15:59 36.8 56 18 104/63 (77) 96 Room Air 05/25/17 15:30 Room Air 05/25/17 15:13 56 96 Room Air 05/25/17 14:58 36.8 60 18 116/68 (84) 99 Nasal Cannula 2.0 05/25/17 14:00 36.7 71 16 105/66 (79) 98 Nasal Cannula 2.0 05/25/17 13:29 36.8 68 17 110/69 (83) 98 Nasal Cannula 2.0 05/25/17 13:00 37.1 90 16 110/69 (83) 97 Nasal Cannula 2.0 05/25/17 13:00 Nasal Cannula 2.0 05/25/17 13:00 Nasal Cannula 2.0 05/25/17 12:35 72 15 102/74 99 Nasal Cannula 2 05/25/17 12:20 36.7 59 14 119/71 99 Nasal Cannula 2 05/25/17 12:10 72 13 116/73 99 Oxymask 8 05/25/17 12:00 75 14 128/79 100 Oxymask 8 05/25/17 11:50 87 14 128/81 100 Oxymask 8 05/25/17 11:43 36.3 85 16 122/80 100 Oxymask 8 Physical Exam General: + well developed, + well nourished, No distress CV: + RRR Pulmonary: + lungs clear, No accessory muscle use, No respiratory distress Neurologic: + alert & oriented x 3 Radiology CXR--no pneumothorax Drains / Tubes chest tube (no air leak ) Assessment & Plan 41 year old male with right spontaneous pneumothorax -chest tube inserted in ED on (05/24/17) which resolved pneumothorax -pt. taken to OR on (05/25/17): RVATS with bleb stapling -CXR on POD #1 showed no pneumothorax and no air leak noted -chest tube pulled and post-pull CXR showed moderate pneumothorax: -pt. asymptomatic -will place on 2 liters of oxygen via NC -repeat CXR today @ 11:30 -if pneumothorax is stable will observe but if pneumothorax is larger pt. may require reinsertion of chest tube OTHER -lovenox in place for DVT prevention Addendum 1130: -repeat CXR shows no change in pneumothorax -pt. noted to be asymptomatic -will repeat CXR in am
[2017-05-26] MEDS ORDERED: ACETAMINOPHEN 325 MG TAB PO SCH (09:00)
--- NOTE | 2017-05-26 11:16 | DIAGNOSTIC IMAGING REPORT ---
SINGLE VIEW CHEST CLINICAL HISTORY: Pneumothorax. FINDINGS: An AP, portable, upright chest radiograph is are compared to studies dated earlier the same day 05/26/2017. Correlation is made with chest CT dated 05/24/2017. The examination is degraded by portable technique and patient rotation. A moderate right apical pneumothorax is unchanged from the prior examination. The cardiomediastinal silhouette is unremarkable. Suture material is identified at the right apex. Opacities at the right apex likely represent atelectasis. The lungs are otherwise clear. No large pleural effusion is seen. No left-sided pneumothorax is identified. The bony thorax is grossly intact. IMPRESSION: 1. A moderate right apical pneumothorax is unchanged from the previous examination. 2. There are increasing airspace opacities at the right apex, likely representing atelectasis. 3. The lungs are otherwise clear. Electronically signed by: Speedy Oliveros M.D. 05/26/2017 11:15 AM Dictated Date/Time: 05/26/2017 11:14 AM
[2017-05-26 11:27] VITALS: BP 120/75; PULSE 55; TEMP 36.6; O2SAT 100
[2017-05-26] MEDS: ACETAMINOPHEN 325 MG TAB PO SCH ×2 (13:36→20:30)
[2017-05-26 15:02] VITALS: BP 105/67; PULSE 55; TEMP 36.7; O2SAT 100
[2017-05-26 19:36] VITALS: BP 112/69; PULSE 62; TEMP 36.9; O2SAT 98
[2017-05-27 00:01] VITALS: BP 117/74; PULSE 65; TEMP 36.9; O2SAT 99
[2017-05-27] MEDS: ACETAMINOPHEN 325 MG TAB PO SCH ×2 (02:06→07:57)
[2017-05-27 07:10] VITALS: BP 120/68; PULSE 65; TEMP 36.9; O2SAT 96
--- NOTE | 2017-05-27 08:07 | DIAGNOSTIC IMAGING REPORT ---
CHEST ONE VIEW PORTABLE HISTORY: pneumothorax COMPARISON: Chest 05/26/2017. FINDINGS: No significant change in the moderate right apical pneumothorax with a maximal pleural gap of 5.7 cm. Suture material within the right lung apex. The left lung is clear. The heart is normal in size. No pleural effusions. No mediastinal shift. IMPRESSION: No change in the moderate right apical pneumothorax. Electronically signed by: Pramod Holder M.D. 05/27/2017 8:06 AM Dictated Date/Time: 05/27/2017 8:04 AM
[2017-05-27] MEDS ORDERED: TRAM-10 PO (08:11)
[2017-05-27] MEDS ORDERED: ACET-1047 PO (08:11)
[2017-05-27] MEDS ORDERED: CLC100 PO (08:11)
[2017-05-27] MEDS ORDERED: IBUP-1050 PO (08:11)
--- NOTE | 2017-05-27 08:17 | Discharge Instructions ---
Discharge Instructions Date of Service May 27, 2017. Admission Reason for Admission: Spontaneous Pneumothorax Discharge Discharge Diagnosis / Problem: Spontaneous Pneumothorax Discharge Goals Goal(s): Decrease discomfort, Improve function Activity Recommendations Activity Limitations: as noted below Lifting Limitations: none 1. Do not drive until cleared to do so by Dr. Keenan. 2. Do not fly or SCUBA dive until cleared to do so by Dr. Keenan. 3. Do not drive if taking ultram. 4. Yo may remove dressing on May 29, 2017, and shower thereafter. No tub baths. . Instructions / Follow-Up Instructions / Follow-Up 1. Office appointment with Dr. Keenan on May 29. Office will call you with date and time of appointment. Go to hospital 1 hour before appointment to have a chest x-ray taken. 2. Call office with any concerns or unusual symptoms such as worsening chest pain or shortness of breath . Current Hospital Diet Patient's current hospital diet: Regular Diet Discharge Diet Recommended Diet: Regular Diet Procedures Procedures Performed: Right Video Assisted Thoracoscopy Bleb Resection, Apical Pleurectomy Pending Studies Studies pending at discharge: no Medical Emergencies . Who to Call and When: Medical Emergencies: If at any time you feel your situation is an emergency, please call 911 immediately. . Non-Emergent Contact Non-Emergency issues call your: Surgeon Call Non-Emergent contact if: you have a fever, your pain is not controlled, wound has increased drainage . "Provider Documentation" section prepared by Samson Woodard. . VTE Core Measure Inpt VTE Proph given/why not?: Enoxaparin (Lovenox)SQ
[2017-05-27] MEDS: DOCUSATE SODIUM 100 MG CAP PO SCH (09:00)
[2017-05-27] MEDS: ENOXAPARIN 40 MG/0.4 ML SYR SQ SCH (09:02)
[2017-05-27 09:32] VITALS: BP 120/68; PULSE 65; TEMP 36.9; O2SAT 96
--- NOTE | 2017-05-27 15:56 | Discharge Summary ---
Discharge Summary Date of Service May 27, 2017. Discharge Summary Admission Date: May 24, 2017 at 13:35 Discharge Date: May 27, 2017 Discharge Disposition: Home Principal Diagnosis: Right Spontaneous Pneumothorax Procedures: 1. Right chest tube insertion 2. Right VATS with bleb stapling Medication Reconciliation New Medications: Ibuprofen (Advil) 200 Mg Tab 400 MG PO Q6H PRN for Pain for 30 Days, #240 TAB Tramadol (Ultram) 50 Mg Tab 50 MG PO Q4H PRN for Pain, #20 TAB Acetaminophen (Mapap) 325 Mg Tab 650 MG PO Q6H for 30 Days, #240 TAB 0 Refills Docusate Sodium (Docusate Sodium) 100 Mg Cap 100 MG PO BID for 30 Days, #60 CAP 1 Refill Continued Medications: Ranitidine Hcl (Zantac) 150 Mg Tab 150 MG PO DAILY PRN for GI Upset, TAB Discharge Exam Review of Systems: Constitutional: No fever, No chills Respiratory: No cough, No wheezing, No shortness of breath Cardiovascular: No chest pain Abdomen: No pain, No nausea, No vomiting Physical Exam: General Appearance: WD/WN, no apparent distress Respiratory/Chest: lungs clear (slight decrease noted on right side), no respiratory distress, no accessory muscle use Cardiovascular: regular rate, rhythm Abdomen / GI: non tender, soft Extremities: no calf tenderness Neurologic/Psychiatric: alert, oriented x 3 Hospital Course 41 year old male admitted with right spontaneous pneumothorax (05/24/17) -chest tube inserted in ED on (05/24/17) which resolved pneumothorax -CT scan following chest tube insertion showed concern for possible blebs -pt. taken to OR on (05/25/17): RVATS with bleb stapling -CXR on POD #1 showed no pneumothorax and chest tube had minimal drainage and no air leak -chest tube pulled on POD #1 and post-pull CXR showed moderate pneumothorax: -pt. note to be asymptomatic -pt. place on 2 liters of oxygen via NC -repeat CXR approx. 4 hours after chest tube pulled showed no change in pneumothorax -CXR on POD #2 showed no change in size of pneumothorax: -as pt. asymptomatic with oxygen saturation in mid to high 902 he was deemed stable for d/c to home OTHER -lovenox utilized post-op for DVT prevention -pt. will follow-up in office in 2 days with repeat CXR Total Time Spent: Greater than 30 minutes This includes examination of the patient, discharge planning, medication reconciliation, and communication with other providers. Discharge Instructions Please refer to the electronic Patient Visit Report (Discharge Instructions) for additional information. Follow-Up Office appointment with Dr. Keenan on May 29 with CXR prior to appointment. Additional Copies To Bucky Linares MD
== END 2017-05-27 11:10 | disposition home or self-care (01) | DRG 165 ==
LOC: C.EDB 10:51 → C.MSW 13:35 → ENRESERV 15:12
PROVIDERS: ADMIT Surgery; ATTEND Surgery
PROC: 0W9930Z Drainage of Right Pleural Cavity with Drainage Device, Percutaneous Approach (ICD-10-PCS; 2017-05-24)
PROC: 0W9930Z Drainage of Right Pleural Cavity with Drainage Device, Percutaneous Approach (ICD-10-PCS; 2017-05-24)
PROC: 0BB Respiratory System, Excision (ICD-10-PCS; principal; 2017-05-25 10:30)
PROC: 0BB Respiratory System, Excision (ICD-10-PCS; principal; 2017-05-25 10:30)
DX: J93.83 Other pneumothorax (principal); J43.9 Emphysema, unspecified; F17.200 Nicotine dependence, unspecified, uncomplicated; Z83.3 Family history of diabetes mellitus

== ENCOUNTER → 2017-05-29 | Outpatient (CLI) | payer OTHER ==
[~2017-05-29] MED LIST changes: +ACET-1047 PO; -CIPR-255 PO; +CLC100 PO; -CLOB-65 EXT; +IBUP-1050 PO; +TRAM-10 PO
--- NOTE | 2017-05-29 08:35 | DIAGNOSTIC IMAGING REPORT ---
TWO VIEW CHEST CLINICAL HISTORY: Pneumothorax. FINDINGS: PA and lateral chest radiographs are compared to study dated 05/27/2017. Correlation is made with chest CT dated 05/24/2017. The PA view is degraded by patient rotation. A moderate right apical pneumothorax is unchanged from prior recent examinations. The cardiomediastinal silhouette is unremarkable. Suture material is identified at the right apex. Opacities at the collapsed right apex likely represent atelectasis. The lungs are otherwise clear. No pleural effusion is seen. No left-sided pneumothorax is identified. The bony thorax is grossly intact. IMPRESSION: 1. A moderate right apical pneumothorax is unchanged from yesterday. 2. Airspace opacities at the collapsed right apex likely represent atelectasis. 3. The lungs are otherwise clear. Electronically signed by: Speedy Oliveros M.D. 05/29/2017 8:33 AM Dictated Date/Time: 05/29/2017 8:32 AM
== END | disposition home or self-care (01) ==
LOC: C.RAD 07:52
PROVIDERS: ATTEND Surgery
DX: J94.2 Hemothorax (principal)